=== PATIENT | male | born 1945 | race Caucasian/White ===

== ENCOUNTER 2018-11-10 05:37 | Day surgery (SDC) | payer OTHER, BC ==
[~2018-11-10] VITALS: Ht 190.5 cm; Wt 96.6 kg
[~2018-11-10 05:37] MED LIST: ASPIR 8181 MG PO; LIPITOR80 MG PO; LISINOPRIL5 MG PO; LOPRESSOR25 PO; PERDIEM15 MG PO; PLAVIX 75 MG TA75 M1 PO; PROTONIX40 M2 PO; TYLENOL325 MG PO
[2018-11-10 06:22] VITALS: BP 137/77
[2018-11-10 10:57] VITALS: BP 137/77
--- NOTE | 2018-11-10 17:48 | O ---
[address] [address] OPERATIVE REPORT Name: AUREA REYNAGA Room #: [facility].#: [id number] Admission: 11/10/18 Attend Phys: Nazario Rodriguez MD Discharge: 11/10/18 Date of : 47 Report #: [id number] THIS REPORT FOR: //name// CC: Nazario Rodriguez Trent Rejimaikel DATE OF SERVICE: 11/10/2018 SERVICE: Orthopedics. FACILITY: [place]. SURGEON: Nazario Rodriguez MD TOBACCO WAREHOUSE AGENT: Yanira Jones NP. INDICATION FOR TOBACCO WAREHOUSE AGENT: Extremity positioning, suture and arthroscope management assistance with the repair. PREOPERATIVE DIAGNOSES: 1. Status post fall. 2. Massive right shoulder rotator cuff tear. 3. Right shoulder pseudoparalysis. 4. Right shoulder acromioclavicular joint arthrosis. 5. Right shoulder biceps tendon tear and biceps instability. POSTOPERATIVE DIAGNOSES: 1. Status post fall. 2. Massive right shoulder rotator cuff tear. 3. Right shoulder pseudoparalysis. 4. Right shoulder acromioclavicular joint arthrosis. 5. Right shoulder biceps tendon tear and biceps instability. 6. Right shoulder impingement syndrome. PROCEDURES: 1. Right shoulder arthroscopic rotator cuff repair. 2. Right shoulder arthroscopic biceps tenodesis. 3. Right shoulder arthroscopic distal clavicle excision. 4. Right shoulder arthroscopic subacromial decompression with extensive debridement. COMPLICATIONS: None. DRAINS: None. SPECIMENS: None. [address] [place] [address] OPERATIVE REPORT Name: AUREA REYNAGA Room #: [facility].#: [id number] Admission: 11/10/18 Attend Phys: Nazario Rodriguez MD Discharge: 11/10/18 Date of : 47 Report #: [id number] ANESTHESIA: General with regional. FINDINGS: 1. Full thickness tears of the supraspinatus and infraspinatus retracted to the glenoid superiorly and medial to the glenoid posteriorly with upper border subscapularis tear. 2. Subscapularis repaired with triple loaded Martell [employer] Nephew Healicoil suture anchor x 1 incorporating biceps tenodesis. 3. Superior cuff tear repaired with margin convergence suture x 4 with medial and lateral row anchors with a triple-loaded Healicoil medially and double loaded 4.75 mm Healicoil laterally. 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 He developed a massive rotator cuff tear and had pseudoparalysis as a result. We had treatment discussions. The MRI did confirm the rotator cuff tear. The tissue quality appeared healthy and the tear and injury was still relatively new enough that I thought rotator cuff repair was a viable option. 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 We were concerned about both the risk of major periprosthetic fracture as well as risk of infection and decided that arthroscopic repair was certainly the most appropriate option recognizing that failure was an option as well. Risks, benefits, alternatives, and indication of surgery discussed with him in detail. Risks include but not limited to pain, bleeding, infection, injury to nerves or blood vessels, persistent pain despite surgical intervention, failure of any repairs, progression of any preexisting chondral injury, stiffness, need for further surgery as well as complications related to anesthesia such as stroke, heart attack, pulmonary complications, thromboembolic disease and . Despite these risks, he wished to proceed. PROCEDURE IN DETAIL: After right upper extremity was correctly identified in preoperative holding area as the operative extremity, the patient underwent placement of single shot regional nerve block. He was then taken to the operating room where general anesthesia was induced without complication. He was seated in beachchair position, padded appropriately. Prophylactic antibiotics with 900 mg of clindamycin were administered at appropriate time. Right arm was then prepped and draped in standard sterile fashion. Time-out procedure was performed. Standard posterior viewing portal was established followed by an anterior interval working portal. Diagnostic arthroscopy revealed the above findings. There was extensive amount of synovitis and there was obviously a massive rotator cuff tear. The upper border of the subscapularis was torn and was retracted medially to some degree and there was fraying of the tendon. The [address] [address] OPERATIVE REPORT Name: AUREA REYNAGA Room #: [facility].#: [id number] Admission: 11/10/18 Attend Phys: Nazario Rodriguez MD Discharge: 11/10/18 Date of : 47 Report #: [id number] interval portal was then established and partial excision of the rotator interval was performed with cautery and shaver and then the tuberosity was prepared for subscapularis repair. The anchor was then placed with triple loaded 5.5 mm PEEK Healicoil suture anchor and 6 sutures were utilized as follows: Two limbs were used for mattress suture, 2 limbs were used for 1 through the subscapularis and 1 passed around the biceps in a cerclage fashion, 2 were used with 1 passed through the upper border subscapularis and then through the biceps tendon with a securing suture. The suture was then secured and then the biceps tenotomy was completed, allowing the tenodesis to be completed in anatomic position. The stump was left in position to reinforce the superior rotator cuff tear as well. Scope was then placed in subacromial space. There was a significant amount of bursitis and the resection was performed with the shaver. Exquisite care was taken to ensure that no rotator cuff tissue was resected. It was retracted quite a bit medially, so I used a suture tape to pass through the tendon to use as a traction stitch pulling anterolaterally. I then proceeded with the series of margin convergence sutures. The first 3 were placed and this allowed approximation of the rotator cuff over the humeral head, which was completely bald covering up the majority of the articular cartilage. The traction stitch was then reconfigured passed posteriorly and then anteriorly and this was tied for a fourth margin convergence suture, which allowed coverage of the humeral head articular cartilage and reduction to the tuberosity. The tuberosity had been prepared with a shaver and a curette for fresh bleeding surface and then the 5.5 mm triple-loaded anchor was then placed at the articular margin and then 3 mattress sutures were placed with some of the sutures placed in a fashion to use the margin convergence suture tapes as rib stop equivalent suture configurations. After this was completed, there was some additional tissue laterally that could benefit from repair and so the 4.75 mm double loaded with tape suture anchor was then selected, placed into the footprint more anterolaterally. Two mattress sutures were then placed here securing the rotator cuff repair. The humeral head and cuff moved as one unit at this point. Bursectomy was completed. There was pronounced medial osteophyte on the medial aspect of the acromion, which required resection, was causing medial impingement syndrome and so the bur was used to perform an acromioplasty with a posterior cutting block technique and then this allowed access to the acromioclavicular joint where an arthroscopic distal clavicle excision was performed in a typical fashion, ensuring visualization of the superior and posterior cortices and complete resection therein. The bony debris was then lavaged. The arthroscopic effusion was drained, instruments were removed. Portal sites were closed. Sterile dressing was applied. The patient was placed in abduction pillow sling, [address] [address] OPERATIVE REPORT Name: JUHIAUREA Sara Room #: [facility]#: [id number] Admission: 11/10/18 Attend Phys: Nazario Rodriguez MD Discharge: 11/10/18 Date of : 47 Report #: [id number] awakened from anesthesia and taken to recovery room in stable condition. No complications. All counts were correct. <ELECTRONICALLY SIGNED> By: Nazario Rodriguez MD 11/10/18 1748 1204 1224 Nazario Rodriguez MD /nt
== END 2018-11-10 12:15 | disposition home or self-care (01) ==
LOC: OR 05:37 → TBA 05:41 → OR 12:15
DX: S46.011A Strain of muscle(s) and tendon(s) of the rotator cuff of right shoulder, initial encounter (principal); M19.011 Primary osteoarthritis, right shoulder; M25.311 Other instability, right shoulder; M75.41 Impingement syndrome of right shoulder; S46.211A Strain of muscle, fascia and tendon of other parts of biceps, right arm, initial encounter; R29.818 Other symptoms and signs involving the nervous system; K21.9 Gastro-esophageal reflux disease without esophagitis; I10 Essential (primary) hypertension; E78.00 Pure hypercholesterolemia, unspecified; I25.2 Old myocardial infarction; Z98.890 Other specified postprocedural states; Z85.828 Personal history of other malignant neoplasm of skin; Z98.0 Intestinal bypass and anastomosis status; Z98.41 Cataract extraction status, right eye; Z98.42 Cataract extraction status, left eye; Z79.899 Other long term (current) drug therapy; Z88.6 Allergy status to analgesic agent; Z88.8 Allergy status to other drugs, medicaments and biological substances; X58.XXXA Exposure to other specified factors, initial encounter; Y93.89 Activity, other specified; Y92.89 Other specified places as the place of occurrence of the external cause; Y99.8 Other external cause status
CPT/HCPCS: 50010; 50101; 50172; 50386; 50417; 50733; 50935; 50950; 51445; 52001; 52282; 52313; 54170; 55430; 56527; 57103; 57128; 59999; 62110; 62900; 65060; 70005

== ENCOUNTER 2018-11-14 21:49 | Inpatient (IN) | payer OTHER, BC ==
[~2018-11-14] VITALS: Ht 190.5 cm; Wt 102.5 kg
[2018-11-14 22:00] VITALS: BP 139/59
[2018-11-14 22:34] LABS: HEMATOCRIT 38.2 % (42.0-52.0); HEMOGLOBIN 12.6 gm/dL (14.0-18.0); MCH 28.7 pg (26.0-34.0); MCHC 32.9 g/dL (28.0-37.0); MCV 87.3 fL (80.0-100.0); PLATELET COUNT 303 thou/uL (150-400); RBC 4.38 mil/uL (4.50-6.00); WBC 13.6 thou/uL (4.0-11.0)
[2018-11-14 22:41] LABS: URINE BILIRUBIN NEGATIVE (Negative); URINE BLOOD NEGATIVE (Negative); URINE CLARITY CLEAR; URINE COLOR YELLOW; URINE GLUCOSE-RANDOM* NEGATIVE (Negative); URINE KETONES NEGATIVE (Negative); URINE LEUKOCYTES-REFLEX NEGATIVE (Negative); URINE NITRITE-REFLEX NEGATIVE (Negative); URINE PROTEIN (DIPSTICK) NEGATIVE (Negative); URINE SPECIFIC GRAVITY <= 1.005 (1.005-1.035); URINE UROBILINOGEN 0.2 E.U./dl (0.2-1.0)
[2018-11-14 22:43] LABS: CALCIUM 8.8 mg/dL (8.5-10.1); POTASSIUM 4.2 mmol/L (3.5-5.1)
[2018-11-14 23:05] LABS: ABSOLUTE NEUTROPHILS 10.3 thou/uL (1.4-8.2); MYELOCYTES 1 %
[2018-11-14] MEDS ORDERED: COLACE100 MG PO (23:51)
[2018-11-14] MEDS ORDERED: OXYCODONE HCL 55 MG PO (23:51)
[2018-11-14] MEDS ORDERED: ONDANSETRON HCL4 M2 PO (23:52)
[2018-11-14] MEDS ORDERED: OXYCONTIN10 M1 PO (23:58)
[2018-11-15] VITALS (10 sets, daily range): BP systolic 136–152; BP diastolic 58–84
--- NOTE | 2018-11-15 02:59 | NUR ---
ADMITTED PER CART FROM ER. STATES IS IN PAIN BUT DOES DOZE OFF WHILE TALKING WITH PATIENT. REMAINS AT BEDSIDE. SON AND DAUGHTER WENT HOME. STOOD AND TRANSFERED TO BED WITH ASSIST OF 2 AND GAIT BELT. ORIENTED TO ROOM AND FLOOR POLICIES. ADMISSION PROCESS COMPLETED. WORKING ON GOALS AND PLAN OF CARE FOR NOC. NOT PROGRESSING TOWARDS DISCHARGE GOALS AT THIS TIME. PAIN MEDICATIONS FOR PAIN CONTROL. CONTINUE TO ASSES CLOSELY. Leeann ORR AT BEDSIDE FOR FURTHER ORDERS.
--- NOTE | 2018-11-15 09:30 | NUR ---
PT REQUESTED AN INCREASE IN HIS PAIN MEDS...WILL ADJUST ORDERED...
[2018-11-15 12:16] LABS: URINE BILIRUBIN NEGATIVE (Negative); URINE BLOOD NEGATIVE (Negative); URINE CLARITY CLEAR; URINE COLOR YELLOW; URINE GLUCOSE-RANDOM* NEGATIVE (Negative); URINE KETONES NEGATIVE (Negative); URINE LEUKOCYTES NEGATIVE (Negative); URINE NITRITE NEGATIVE (Negative); URINE PROTEIN (DIPSTICK) NEGATIVE (Negative)
[2018-11-16 04:10] VITALS: BP 144/77
--- NOTE | 2018-11-16 06:00 | NUR ---
PT CONT TO HAVE RIGHT SHOULDER PAIN. MEDS GIVEN ORDERED STANDS TO VOID WITH ONE ASSIST. WILL CONT TO MONITOR
[2018-11-16 08:05] VITALS: BP 139/81
--- NOTE | 2018-11-16 08:43 | EKG ---
[address] [address] ELECTROCARDIOGRAM REPORT Name: AUREA REYNAGA Room #: 359- ADM IN M.R.#: [id number] Admission: 11/15/18 Attend Phys: Margaret Delgado MD Discharge: Date of : 47 Report #: [id number] THIS REPORT FOR: //name// [facility] Test Date: 2018-11-15 Test Time: 15:03:57 Pat Name: AUREA REYNAGA Department: Room: 359 Gender: M Hearse Driver: jlambgeorgette : 1945 Requested By: Margaret Delgado Order Number: [id number] MD: Kwaku Schroeder Measurements Intervals [place] Rate: 77 P: 41 MN: 167 QRS: -10 QRSD: 84 T: 2 QT: 373 QTc: 423 Interpretive Statements Sinus rhythm Normal tracing No previous ECG available for comparison Electronically Signed On 11-16-2018 8:43:03 CDT by Kwaku Schroeder [email or web address] <ELECTRONICALLY SIGNED> By: Kwaku Schroeder MD, [facility] 11/16/18 0843 1503 1503 Kwaku Schroeder MD, FACC /EPI
[2018-11-16 09:22] LABS: HEMATOCRIT 39.1 % (42.0-52.0); HEMOGLOBIN 13.1 gm/dL (14.0-18.0); MCHC 33.5 g/dL (28.0-37.0); MCV 86.8 fL (80.0-100.0); PLATELET COUNT 335 thou/uL (150-400); RBC 4.51 mil/uL (4.50-6.00); RDW 14.1 % (10.5-14.5); WBC 13.4 thou/uL (4.0-11.0)
[2018-11-16 09:37] LABS: CALCIUM 9.5 mg/dL (8.5-10.1); CREATININE 0.9 mg/dL (0.7-1.3); POTASSIUM 4.3 mmol/L (3.5-5.1); TOTAL BILIRUBIN 1.2 mg/dL (<0.1-1.0); TOTAL PROTEIN 7.4 g/dL (6.4-8.2)
[2018-11-16 09:49] LABS: MAGNESIUM 2.2 mg/dL (1.8-2.4)
[2018-11-16 09:51] LABS: ABSOLUTE NEUTROPHILS 11.3 thou/uL (1.4-8.2); PLATELET ESTIMATE NORMAL
--- NOTE | 2018-11-16 10:46 | NUR ---
Nutrition: Assessed due to consult received related to poor appetite post rotator cuff repair less than a week ago. Admit with fever, chills and pain. PO intake recorded as 75-80% of meals yesterday however family states pt ate <25% of meals. Poor intake related to constipation likely due to narcotics. Pt started on bowel regimen. Feels po intake will improve once has BM and this is their main focus at this time. Adequate fluid intake encouraged and fiber sources discussed. No recent weight loss reported. Provided menu and discussed ordering meals as desired. No malnutrition identified. Low risk.
--- NOTE | 2018-11-16 17:05 | HC ---
[facility] [place] [address] CONSULTATION Name: JUHIAUREA Sara Room #: 359-P ADM IN .R.#: [id number] Admission: 11/15/18 Attend Phys: Margaret Delgado MD Discharge: Date of : 47 Report #: [id number] THIS REPORT FOR: //name// CC: Yonathan Parham DATE OF SERVICE: 11/15/2018 INFECTIOUS DISEASE CONSULTATION REASON FOR CONSULTATION: I was asked to evaluate concerning postoperative fever. HISTORY OF PRESENT ILLNESS: The patient is a 73-year-old, who on 11/10 underwent a rotator cuff repair, right shoulder, without intraoperative complications by Dr. Nazario Rodriguez. He had been on Eliquis for cardiac stents. He did have some postoperative bleeding. He was on Plavix. He has been off Plavix first several days prior to his procedure. He remains off this. He was at home with poor pain control. He remains in a shoulder immobilizer. He did have arthroscopic procedure. He has increased his pain medication, but still has not had reasonable control. No gross aspiration episodes. He has had no rashes. He has been constipated. No cough or sputum production. No chest pain. No nausea, vomiting or abdominal pain. No dysuria or frequency. He has had no back or flank pain. He has had no arthritis symptoms otherwise. There have been no neurologic issues. REVIEW OF SYSTEMS: Full 10-point review of systems was negative other than what has been described above. He has had no drainage from his arthroscopic incisions. ALLERGIES: AMPICILLIN with throat swelling, the patient does state he tolerates cephalexin without reaction. MORPHINE, CODEINE with GI upset. MEDICATIONS: As noted on his MAR, which were reviewed including docusate sodium, oxycodone, metoprolol, Plavix on hold, pantoprazole, lisinopril, Lipitor, aspirin, Tylenol. PAST MEDICAL HISTORY: DC, cardiac stents, hypertension, hyperlipidemia, gastroesophageal reflux. PAST SURGICAL HISTORY: He has had back surgery, colon resection due to diverticulitis, colonoscopy and bilateral cataract surgery. FAMILY HISTORY: Noncontributory. SOCIAL HISTORY: Nonsmoker, no significant alcohol intake. [facility] [address] [place] [address] CONSULTATION Name: AUREA REYNAGA Sara Room #: 359-P [facility]#: [id number] Admission: 11/15/18 Attend Phys: Margaret Delgado MD Discharge: Date of : 47 Report #: [id number] PHYSICAL EXAMINATION: VITAL SIGNS: He was afebrile and hemodynamically stable. He was alert and cooperative and pleasant, in no acute distress. He did have maximum temperature of 100.8 earlier this morning. EXTREMITIES: His right arm was in a shoulder immobilizer. He had ecchymosis to the right upper arm and chest. There was swelling about the right shoulder. He was exquisitely tender in this region. There was no surrounding erythema. There was no drainage from his incisions. EYES: Without scleral icterus. MOUTH: Without mucositis. NECK: Supple. LUNGS: Clear. HEART: Regular, without murmur, gallop or rub. ABDOMEN: Mildly distended, no masses or hepatosplenomegaly. He was nontender. GENITORECTAL: Not performed. EXTREMITIES: Without clubbing, cyanosis or edema. NEUROLOGIC: Sensation in the right hand was normal. Good capillary refill in the fingertips. Mood was normal. LABORATORY STUDIES: Urinalysis was unremarkable. Chest x-ray showed small patchy areas of atelectasis. ESR 92. CRP 171. Hemoglobin 12.6, white count 13.6, platelet count 303,000. Differential unremarkable. Creatinine 1. Blood cultures are pending. Urine culture pending. IMPRESSION: The patient presents postoperative day #4 with low-grade fever and uncontrolled pain. Source of his fever would include surgical site infection, although there was no evidence of erythema or drainage from his incisions. Atelectasis, but white count is elevated. Drug reaction seems less likely. Aspiration pneumonia is still a consideration considering his increased narcotic use. RECOMMENDATION: Since cultures have been obtained, we will begin antibiotic therapy. Serial chest x-ray. ____ and aspiration precautions. We will see how he feels tomorrow before further imaging of his right shoulder. The patient was unable to lay flat for imaging today. <ELECTRONICALLY SIGNED> By: Salty Rosen MD 11/16/18 1705 1338 0200 Salty Rosen MD /nt
--- NOTE | 2018-11-16 18:00 | NUR ---
PT PROGRESSING SLOWLY TOWARDS GOALS...HE HAS NO APPETITE AND IS NAUSEATED...HIS ABDOMEN IS FIRM, DISTENDED AND HAS HYPOACTIVE BS...HE IS ENCOURAGED TO USE INECENTIVE SPIROMETER AND OBTAINED 3500...HE IS HAVING PAIN MEDS ADJUSTED AND HAS DONE BETTER TODAY WITH PAIN BUT STILL APPEARS VERY DROWSY...HE VOIDS AROUND 150 EACH TIME AND HAD 95 ML WHEN SCANNED...
--- NOTE | 2018-11-16 19:00 | NUR ---
PT GIVEN MULTIPLE THINGS FOR CONSTIPATION...COLACE, MIRALAX, MAG CITRATE, GOLYTELY PREP, GLYCERIN SUPP, FLEETS AND THEN TAP WATER ENEMA. HE WAS MANUALLY DISIMPACTED WITH A SMALL AMOUNT OF HARD STOOL...ENCOURAGED TO AMBULATE TOMORROW TO ASSIST WITH CONSTIPATION...
[2018-11-16 21:17] VITALS: BP 158/78
[2018-11-17 03:32] LABS: CALCIUM 8.6 mg/dL (8.5-10.1); CREATININE 0.9 mg/dL (0.7-1.3); MAGNESIUM 2.5 mg/dL (1.8-2.4); POTASSIUM 4.7 mmol/L (3.5-5.1)
[2018-11-17 05:30] VITALS: BP 147/83
--- NOTE | 2018-11-17 05:48 | NUR ---
PT WAS VERY LETHARGIC AT BEGINNING OF SHIFT. 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 DAUGHTER STATES HE IS WITHDRAWING. PT STATED HE WAS HAVING NAUSEA. GAVE ZOFRAN WITHOUT SUCCESS. CALLED WAREHOUSE TEAM LEADER GOT ORAL PROMETH AND IT WORKED WELL. VANCO TROUGH CAME BACK AT 8, CALLED DR. ALLEN, RECEIVED ORDERS FOR NEW VANCO DOSE. PAIN BEING MANAGED WITHOUT OPIODS. HOURLY ROUNDING.
[2018-11-17 07:35] VITALS: BP 153/78
[2018-11-17 11:32] VITALS: BP 131/70
--- NOTE | 2018-11-17 14:22 | NUR ---
INITIAL ASSESSMENT: Pt evaluated for d/c planning needs. Reviewed chart and spoke with nurse, pt and pt's daughter. Pt is alert and oriented. Pt lives in house with spouse and was independent with ADL's prior to his shoulder surgery last week. Pt was driving and used no DME. Pt said they have walker and cane at home. Pt has not had home health in the past. Pt was evaluated by [facility] and accepted, but pt and daughter adamantly refuse inpatient rehab and said they want pt to return home with home health. Pt given options and wants to use [facility]. Asked network planner to send referral to [facility]. Will remain available to assist as needed.
--- NOTE | 2018-11-17 14:29 | NUR ---
PATIENT SEEN BY MAIA CONKLIN NP WITH DR. CHINCHILLA. PATIENT IS A GOOD CANDIDATE FOR ACUTE REHAB WITH A QUALIFYNG DX, BUT FAMILY/PATIENT WANT TO RETURN HOME WITH HOME HEALTH CARE. SYNCHRO ASSEMBLER AND OPERATIONS MANAGER AWARE. WILL CONTINUE TO FOLLOW.
--- NOTE | 2018-11-17 14:34 | NUR ---
maintenance planner sent initial home health referral to [facility] date unknown at this time. HH will be for nursing, pt and ot.
[2018-11-17 16:17] VITALS: BP 141/81
[2018-11-17 19:07] VITALS: BP 149/81
--- NOTE | 2018-11-17 20:00 | NUR ---
PATIENT PROGRESSING UP TO THE COMMODE AND BATHROOM SEVERAL TIMES TODAY WITH ASSISTANCE, MORE STEADY DAY PROGRESSED. TOOK SHOWER WITH ASSISTANCE OF OT PAIN CONTROLLED AND LESS ANXIOUS AND NO NAUSEA AFTER NARCO GIVEN.
[2018-11-18 01:24] VITALS: BP 149/81
[2018-11-18 03:56] VITALS: BP 147/83
--- NOTE | 2018-11-18 04:02 | NUR ---
FOLLOWING POC WITH ORAL MEDICATIONS FOR PAIN MANAGEMENT. IVF GTT. PT IS LESS CONFUSED THAN LAST NIGHT. PT IS ALSO RECEIVING EYEDROPS Q4. ROOMING IN. PT WILL DC TO HOME WITH HH IF PAIN IS UNDER CONTROL. PT USES CALL LIGHT WHEN NEEDING ITEMS. FALL PRECAUTIONS IN PLACE. PT HAS BEEN AFEBRILE THIS EVENING.
[2018-11-18 05:50] LABS: HEMATOCRIT 35.5 % (42.0-52.0); HEMOGLOBIN 11.7 gm/dL (14.0-18.0); MCH 28.6 pg (26.0-34.0); MCHC 32.9 g/dL (28.0-37.0); MCV 86.7 fL (80.0-100.0); RBC 4.09 mil/uL (4.50-6.00); RDW 14.3 % (10.5-14.5); WBC 10.1 thou/uL (4.0-11.0)
[2018-11-18 05:56] LABS: CALCIUM 8.2 mg/dL (8.5-10.1); CREATININE 0.8 mg/dL (0.7-1.3); POTASSIUM 4.1 mmol/L (3.5-5.1)
[2018-11-18 07:45] VITALS: BP 141/80
[2018-11-18] MEDS ORDERED: LEVAQUIN 500 M500 M3 PO (10:54)
[2018-11-18] MEDS ORDERED: HYDROCODON-ACE1 EAC7 PO (10:54)
[2018-11-18 13:25] VITALS: BP 141/80
[2018-11-18 13:27] VITALS: BP 141/80
--- NOTE | 2018-11-18 13:34 | NUR ---
DISCHARGE ORDERS COMPLETED. PATIENT DISCHARGING TO HOME. HOME HEALTH RECOMMENDED AT DISCHARGE. PER PATIENT REQUEST REFERRAL FAXED, DISCHARGE ORDERS, AND DISCHARGE/HH SUMMARY FAXED TO [facility]. CALL PLACED TO [facility] INTAKE, TO NOTIFY. SPOKE WITH TRISTIN, VERBAL REFERRAL GIVEN TO HER. TRISTIN TO REVIEW AND NOTIFY CM. UNIT SW AWARE.
[2018-11-18] MEDS ORDERED: CIPROFLOXIN HC2.5 M1 OPHTHALMIC ×3 (13:37→13:44)
[2018-11-18 13:40] VITALS: BP 141/80
--- NOTE | 2018-11-18 14:24 | NUR ---
SW reviewed chart and spoke with nursing and attending physician. Pt is medically stable for discharge home today with services. Pt has been accepted to [facility]. However pt and family prefer pt return home with HH. SW met with pt and family at bedside to discuss discharge plan. Pt and family are agreeable with plan for pt to have [facility]. YASMANY explained that [facility] does not have an RN available at the time. Pt and family verbalize understanding and state they do not feel that they need an RN right now, but will notify if they change their mind when an RN is available. production planner to fax final discharge orders/summary to [facility]. Contact info for [facility] placed in pt's discharge summary. Pt's family to provide transportation home. No additional SW needs identified at this time, but is available to assist should needs arise.
--- NOTE | 2018-11-18 18:01 | NUR ---
PATIENT ALERT AND ORIENTED WITH SPOUSE AT BEDSIDE IN COT SLEEPING OVERNIGHT. PATIENT DISCHARGED TO HOME IN STABLE CONDITION WITH DISCHARGE INSTRUCTIONS, HOME HEALTH, PRESCRIPTIONS, AND ALL PERSONAL BELONGINGS. EXCELLENT FAMILY SUPPORT. DISCHARGED IN WHEELCHAIR TO HOSPITAL ENTRANCE WITH SPOUSE IN PERSONAL VEHICLE.
== END 2018-11-18 14:49 | disposition home health service (06) | DRG 864 ==
LOC: ER 21:49 → 3W 11-15 00:05 → EROBS 11-15 00:05 → 3W 11-15 00:31 → ENTRNSPT 11-18 14:40 → EDTRNSPTSTS 11-18 14:42 → 3W 11-18 14:49
PROVIDERS: Emergency Medicine; Internal Medicine; Specialist; ADMIT Internal Medicine
DX: R50.82 Postprocedural fever (principal); J98.11 Atelectasis; E87.1 Hypo-osmolality and hyponatremia; M25.511 Pain in right shoulder; I10 Essential (primary) hypertension; E78.00 Pure hypercholesterolemia, unspecified; G89.18 Other acute postprocedural pain; K21.9 Gastro-esophageal reflux disease without esophagitis; N40.0 Benign prostatic hyperplasia without lower urinary tract symptoms; E04.1 Nontoxic single thyroid nodule; I25.10 Atherosclerotic heart disease of native coronary artery without angina pectoris; Z96.1 Presence of intraocular lens; F17.220 Nicotine dependence, chewing tobacco, uncomplicated; K59.03 Drug induced constipation; T40.2X5A Adverse effect of other opioids, initial encounter; M54.16 Radiculopathy, lumbar region; Y92.89 Other specified places as the place of occurrence of the external cause; I25.2 Old myocardial infarction; Z95.5 Presence of coronary angioplasty implant and graft; Z98.42 Cataract extraction status, left eye; Z98.41 Cataract extraction status, right eye; Z87.81 Personal history of (healed) traumatic fracture; Z79.02 Long term (current) use of antithrombotics/antiplatelets; Z79.82 Long term (current) use of aspirin; Z79.899 Other long term (current) drug therapy; Z88.1 Allergy status to other antibiotic agents; Z88.0 Allergy status to penicillin; Z88.5 Allergy status to narcotic agent; Z80.0 Family history of malignant neoplasm of digestive organs; Z81.1 Family history of alcohol abuse and dependence; Z82.3 Family history of stroke
CPT/HCPCS: 10879